=== PATIENT | male | born 1985 | race Caucasian/White ===

== ENCOUNTER → 2016-10-19 | Day surgery (SDC) | payer OTHER ==
[2016-10-18 15:10] VITALS: Ht 174 cm; Wt 81.8 kg
[~2016-10-19] VITALS: Ht 174 cm; Wt 81.8 kg
[~2016-10-19] MED LIST: ACETAMINOPHEN/CODEINE 300/30MG TAB PO PRN; ATROPINE SULFATE 0.1 MG/ML 5ML SYR IV PRN; BUPIVACAINE 0.5 % 5 MG/1 ML MPF 30ML VIAL ONE; CEFAZOLIN 2000 MG/60 ML D5W IV SCH; CEFAZOLIN IV 2,000 MG/60 ML D5W IV ONE; EpHEDrine SULFATE INJ 50 MG/ML AMP IV PRN; FENTANYL CITRATE INJ 50 MCG/1 ML 2 ML VIAL IV PRN; FENTANYL CITRATE INJ 50 MCG/1 ML 2 ML VIAL ONE; HYDROCODONE/ACETAMOPHEN 5/325MG TAB PO PRN; LACTATED RINGER'S 1000ML 1,000 ML IV SCH; LIDOCAINE HCL 1% 20 ML VIAL ONE; METOCLOPRAMIDE HCL INJ 5 MG/ML 2 ML VIAL IV PRN; MIDAZOLAM HCL 1 MG/ML 2ML VIAL ONE; ONDANSETRON INJ 2 MG/ML 2 ML VIAL ONE; PROPOFOL IV EMULSION 10 MG/ML 20 ML VIAL IV ONE; SILVER SULFADIAZINE 1% CR 50 GM JAR EXT ONE; SODIUM CHLORIDE 0.9% 1000ML 1,000 ML IV SCH
--- NOTE | 2016-10-19 07:52 | History & Physical Bridge - [place] ---
H&P Re-Evaluation Bridge Note: I have examined the patient, reviewed the History & Physical and in the interval since the performance of the History & Physical I have noted the following changes of clinical significance: No changes noted
--- NOTE | 2016-10-19 09:09 | Discharge Instructions-SurgCtr ---
Discharge Instructions Date of Service October 19, 2016. Visit Reason for Visit: Plantar Warts, Pain; Bilateral Feet Discharge Discharge Diagnosis / Problem: bilateral plantar warts Discharge Goals Goal(s): Decrease discomfort, Improve function Activity Recommendations Activity Limitations: as noted below (keep dressings in place, f/u saturday) Lifting Limitations: no more than 5 pounds Exercise/Sports Limitations: until after follow-up appointment May Resume Sexual Activity: after follow-up appointment Shower/Bathe: may shower/bathe in 3 days Driving or Machine Use: resume 1 day after discharge Weightbearing Status: Left weightbearing (as tolerated), Right weightbearing ( as tolerated) Anesthesia . Post Anesthesia Instructions: If you have had General Anesthesia or IV Sedation: * Do not drive today. * Resume driving when surgeon permits. * Do not make important decisions or sign legal documents today. * Call surgeon for: 1. Temperature elevations greater than 101 degrees F. 2. Uncontrollable pain. 3. Excessive bleeding. 4. Persistent nausea and vomiting. 5. Medication intolerance (nausea, vomiting or rash). * For nausea and vomiting use only clear liquids such as: tea, soda, bouillon until nausea subsides, then gradually increase diet as tolerated. * If you have any concerns or questions, call your surgeon's office. If physician is unavailable and it is an emergency, call 911 or go to the nearest emergency room. . Instructions / Follow-Up Instructions / Follow-Up call [phone] with problems f/u Saturday Diet Recommendations Home Diet: no limitations Procedures Procedures Performed: Bilateral Feet Surgical Excision Benign Neoplasm (Plantar Verucca) Using Laser Ablation CO2 Laser Pending Studies Studies pending at discharge: no Medical Emergencies . Who to Call and When: Medical Emergencies: If at any time you feel your situation is an emergency, please call 911 immediately. . Non-Emergent Contact Non-Emergency issues call your: Primary Care Provider Call Non-Emergent contact if: temperature is above 101.5 . . "Provider Documentation" section prepared by Kathy Sebastian. . [place] Drug Monitoring Program Search Results: patient reviewed within database, no issues identified
--- NOTE | 2016-10-19 09:10 | [facility] Post Operative Brief Note ---
Immediate Operative Summary Operative Date October 19, 2016. Pre-Operative Diagnosis Bilateral Feet Plantar Warts Post-Operative Diagnosis Same Procedure(s) Performed Bilateral Feet Surgical Excision Benign Neoplasm (Plantar Verucca) Using Laser Ablation CO2 Laser Surgeon Dr Delong Access Rep Surgeon(s) None Estimated Blood Loss 1 cc Findings plantar wart bilateral feet Specimens A: Right Foot Lesions B: Left Foot Lesions Drains none Anesthesia local iv sedation Complication(s) None Disposition Recovery Room / PACU
[2016-10-19 09:13] VITALS: TEMP 36.6
--- NOTE | 2016-10-19 09:15 | Anesthesia Progress Nt - [facility] ---
Anesthesia Post Op Note Date & Time October 19, 2016 at 09:14 Vital Signs Pain Intensity: 0 Vital Signs Past 12 Hours Date Time Temp Pulse Resp B/P Pulse Ox O2 Delivery O2 Flow Rate FiO2 10/19/16 07:18 37.2 90 20 115/79 95 Room Air Notes Mental Status: alert / awake / arousable, participated in evaluation Pt Amnestic to Procedure: Yes Nausea / Vomiting: adequately controlled Pain: adequately controlled Airway Patency, RR, SpO2: stable & adequate BP & HR: stable & adequate Hydration State: stable & adequate Anesthetic Complications: no major complications apparent
[2016-10-19 09:57] VITALS: BP 119/79; PULSE 69; O2SAT 99
--- NOTE | 2016-10-19 17:03 | OPERATIVE REPORT ---
DATE OF OPERATION: 10/19/2016 SURGEON: Kathy Sebastian DPM PREOPERATIVE DIAGNOSIS: Painful bilateral plantar warts. POSTOPERATIVE DIAGNOSIS: Same. PROCEDURE PERFORMED: Bilateral plantar wart excision and laser removal with CO2 laser. HEMOSTASIS: No hemostasis was used. ANESTHESIA: Local IV sedation. DESCRIPTION OF PROCEDURE: The patient was brought in the operating room and placed in the supine position. Bilateral lower extremities were prepped and draped in the usual sterile manner. A 1:1 mixture of 1% lidocaine plain and 0.5% Marcaine was utilized to anesthetize both feet at the area of the plantar warts. After these were injected, anesthesia was induced. A timeout was taken and the procedure began. Both feet have plantar warts present. On the right foot, there were 3 present. They measured 0.5 x 0.5, 0.3 x 0.4, and 0.7 x 0.7. On the left, there was a large area and multiple areas of plantar's warts measuring 9 x 3, 3 x 2, 2 x 2, 0.5 x 0.5, 0.7 x 0.5, 1 x 1, 0.5 x 0.5, 0.7 x 0.5, 1 x 1, 0.5 x 0.5, 0.6 x 0.6, 1 x 1, 0.5 x 0.5, 0.7 x 0.5, 0.3 x 0.3, 0.2 x 0.2, 0.5 x 0.5 and 0.5 x 0.5 and all of these were measured in centimeters. All of these were excised from about the right and left foot. A curette was passed over the area followed by the laser. There was bleeding noted after removal of the plantar's warts, which was controlled with hemostasis, pressure and dressings. Silvadene dressings were applied and the patient was taken to the recovery room with all vital signs stable and intact. He will follow up with me in the office in 1 week. He was made aware of all risks and benefits and he did try conservative treatment including acid treatments to the plantar's warts which were not successful in improving them and that is why he opted to have them surgically excised and lasered. I attest to the content of the Intraoperative Record and any orders documented therein. Any exceptio ns are noted below.
== END | disposition home or self-care (01) ==
LOC: X.SURG 06:58
PROVIDERS: ATTEND Podiatrist
DX: B07.0 Plantar wart (principal); E78.00 Pure hypercholesterolemia, unspecified